=== PATIENT | female | born 1950 | race Caucasian/White ===

== ENCOUNTER 2018-03-18 11:22 | Inpatient (IN) | payer OTHER ==
[~2018-03-18] VITALS: Ht 170.2 cm; Wt 105.2 kg
[2018-03-18 12:25] VITALS: BP 142/88
[2018-03-18 15:04] LABS: ABSOLUTE BASOPHILS 0.1 thou/uL (0.0-0.2); ABSOLUTE EOSINOPHILS 0.2 thou/uL (0.0-0.7); ABSOLUTE LYMPHOCYTES 1.3 thou/uL (0.8-5.3); ABSOLUTE MONOCYTES 0.9 thou/uL (0.0-1.2); ABSOLUTE NEUTROPHILS 3.5 thou/uL (1.6-8.1); HEMATOCRIT 40.2 % (37.0-47.0); HEMOGLOBIN 13.1 gm/dL (12.0-15.0); LYMPHOCYTES 22.3 %; MCH 29.2 pg (26.0-34.0); MCHC 32.6 g/dL (28.0-37.0); MCV 89.4 fL (80.0-100.0); MONOCYTES 14.9 %; MPV 7.4 fl. (7.2-11.1); NUCLEATED RBCS 0 /100WBC; PLATELET COUNT* 374 thou/uL (150-400); POLYS 58.8 %; RBC 4.49 mil/uL (4.20-5.00); RDW-CV 13.5 % (10.5-14.5); WBC 5.9 thou/uL (4.0-11.0)
[2018-03-18 15:13] LABS: ANION GAP 9 mmol/L (7-16); BUN 17 mg/dL (7-18); CALCIUM 9.8 mg/dL (8.5-10.1); CHLORIDE 108 mmol/L (98-107); CO2 25 mmol/L (21-32); CREATININE 0.8 mg/dL (0.6-1.3); GLUCOSE 90 mg/dL (70-99); POTASSIUM 3.7 mmol/L (3.5-5.1); SODIUM 142 mmol/L (136-145)
[2018-03-18 15:28] LABS: ALBUMIN 3.4 g/dL (3.4-5.0); ALKALINE PHOSPHATASE 78 U/L (46-116); SGOT 17 U/L (15-37); SGPT 19 U/L (30-65); TOTAL BILIRUBIN 0.4 mg/dL (<0.1-1.0); TOTAL PROTEIN 6.8 g/dL (6.4-8.2); TROPONIN-I LEVEL <0.06 ng/mL (<0.06)
[2018-03-18 15:38] VITALS: BP 112/84
--- NOTE | 2018-03-18 17:41 | 2DMMODE ---
[place] [address] 2 D/M-MODE ECHOCARDIOGRAM Name: CHARLESJASON M Room: [address] IN .R.#: [id number] Admission: 03/18/18 Attend Phys: Jayjay Steward, Discharge: Date of : 54 Date of Service: 03/18/181739 Report #: [id number] THIS REPORT FOR: //name// APPROVED REPORT Study performed: 03/18/2018 16:13:33 EXAM: Comprehensive 2D, Doppler, and color-flow Echocardiogram Patient Location: Bedside BSA: 2.11 HR: 97 bpm BP: 142/88 mmHg Other Information Study Quality: Fair Indications Atrial Fibrillation 2D Dimensions IVSd: 10.92 (7-11mm) LVOT Diam: 20.99 (18-24mm) LVDd: 49.15 mm PWd: 7.16 (7-11mm) Ascending Ao: 31.58 (22-36mm) LVDs: 34.69 (25-40mm) Aortic Root: 29.64 mm Volumes Left Atrial Volume (Systole) LA ESV Index: 13.80 mL/m2 Aortic Valve AoV Peak Ulises.: 0.71 m/s AO Peak Gr.: 2.00 mmHg LVOT Max P.99 mmHg AO Mean Gr.: 1.17 mmHg LVOT Mean P.19 mmHg LVOT Max V: 0.71 m/s AO V2 VTI: 10.66 cm LVOT Mean V: 0.52 m/s JEAN MARIE (VTI): 4.21 cm2 LVOT V1 VTI: 12.97 cm Mitral Valve E/A Ratio: 3.32 MV Decel. Time: 157.47 ms MV E Max Ulises.: 0.86 m/s MV PHT: 45.67 ms MVA (PHT): 4.82 [place]2 [place] [address] 2 D/M-MODE ECHOCARDIOGRAM Name: JASON SOTO Room: [address] IN ..#: [id number] Admission: 03/18/18 Attend Phys: Jayjay Steward, Discharge: Date of : 54 Date of Service: 03/18/18 1740 Report #: [id number] TDI E/Lateral E': 7.82 E/Medial E': 7.17 Medial E' Ulises.: 0.12 m/s Lateral E' Ulises.: 0.11 m/s Pulmonary Valve PV Peak Ulises.: 0.85 m/s PV Peak Gr.: 2.89 mmHg Tricuspid Valve RAP Estimate: 5.00 mmHg TR Peak Gr.: 16.70 mmHg RVSP: 21.70 mmHg PA Pressure: 21.70 mmHg Left Ventricle The left ventricle is normal size. There is normal LV segmental wall motion. There is normal left ventricular wall thickness. Left ventricular systolic function is normal. The left ventricular ejection fraction is within the normal range. LVEF is 60-65%. Right Ventricle The right ventricle is normal size. The right ventricular systolic function is normal. Atria The left atrium size is normal. The right atrium size is normal. Aortic Valve The Aortic valve is sclerotic. No aortic regurgitation is present. There is no aortic valvular stenosis. Mitral Valve The mitral valve is normal in structure. Trace mitral regurgitation. No evidence of mitral valve stenosis. Tricuspid Valve The tricuspid valve is normal in structure. Trace tricuspid regurgitation. Pulmonic Valve The pulmonary valve is normal in structure. There is no pulmonic valvular regurgitation. Great Vessels The aortic root is normal in size. IVC [place] [address] 2 D/M-MODE ECHOCARDIOGRAM Name: JASON SOTO Room: [address]#: [id number] Admission: 03/18/18 Attend Phys: Jayjay Steward, Discharge: Date of : 54 Date of Service: 03/18/18 1740 Report #: [id number] collapses >50% with inspiration. Pericardium There is no pericardial effusion. <Conclusion> LVEF is 60-65%. The Aortic valve is sclerotic. <ELECTRONICALLY SIGNED> By: Anuj Beltran MD, FACC 03/18/181739 39 39 Anuj Beltran MD, FACC /INF
[2018-03-18 19:39] VITALS: BP 133/71
--- NOTE | 2018-03-18 19:54 | NUR ---
RECEIVED REPORT AND ASSUMED CARE OF PT, ASSESSMENT COMPLETED. TELEMETRY ON SHOWING SINUS ARRHYTHYMIA, ATTEMPTING TO CONVERT. CARDIZEM INFUSING AT 5 CC/HR. PT UP AD ZAHEER WITH STEADY GAIT. NO COMPLAINTS VOICED. WILL CONT TO MONITOR AND ASSIST NEEDED.
[2018-03-19] VITALS: BP 144/72
[2018-03-19 04:00] VITALS: BP 131/72
[2018-03-19 04:29] LABS: ABSOLUTE BASOPHILS 0.1 thou/uL (0.0-0.2); ABSOLUTE LYMPHOCYTES 1.4 thou/uL (0.8-5.3); BASOPHILS 1.1 %; HEMOGLOBIN 12.7 gm/dL (12.0-15.0)
[2018-03-19 04:38] LABS: ABSOLUTE EOSINOPHILS 0.2 thou/uL (0.0-0.7); ABSOLUTE NEUTROPHILS 6.5 thou/uL (1.6-8.1); EOSINOPHILS 2.3 %; HEMATOCRIT 39.4 % (37.0-47.0); LYMPHOCYTES 15.4 %; MCH 28.9 pg (26.0-34.0); MCHC 32.3 g/dL (28.0-37.0); MCV 89.5 fL (80.0-100.0); MONOCYTES 10.5 %; MPV 7.3 fl. (7.2-11.1); NUCLEATED RBCS 0 /100WBC; PLATELET COUNT* 350 thou/uL (150-400); POLYS 70.7 %; RDW-CV 13.2 % (10.5-14.5); WBC 9.1 thou/uL (4.0-11.0)
[2018-03-19 05:02] LABS: CALCIUM 9.6 mg/dL (8.5-10.1); CREATININE 0.8 mg/dL (0.6-1.3); POTASSIUM 4.2 mmol/L (3.5-5.1)
--- NOTE | 2018-03-19 06:16 | NUR ---
SLEPT WELL TONIGHT. CARDIZEM CONT WITH TELEMETRY SHOWING SINUS ARRHYTHMIA. PT DENIES CP OR SOB. GAIT STEADY TO AND FROM BR. HOURLY ROUNDING OBSERVED. HS GOALS OF REST AND SAFETY ACHIEVED.
[2018-03-19 07:40] VITALS: BP 130/61
--- NOTE | 2018-03-19 08:45 | NUR ---
REC'D REPORT FROM NOC RN, ASSUMED CARE OF PT APPROX 0730. A&O X4, ABLE TO COMMUNICATE NEEDS TO STAFF. 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 O2 SATS >92% RA. CARDIZEM GTTS INFUSING ORDERED. ASSESSMENT COMPLETE. VSS. CARDIOLOGY CONSULT THIS AM. CALL LIGHT WITHIN REACH.
--- NOTE | 2018-03-19 09:08 | CON ---
[address] [address] CONSULTATION Name: JASON SOTO Room: [address] IN ..#: [id number] Admission: 03/18/18 Attend Phys: Jayjay Steward MD Discharge: Date of : 54 Report #: [id number] THIS REPORT FOR: //name// CC: Jayjay Carter NO PCP Taurus Jean MD DATE OF SERVICE: 03/18/2018 Cardiology Consultation HISTORY OF PRESENT ILLNESS: The patient is a 67-year-old single white female who I was asked to see in the hospital after she is noted to have atrial fibrillation. The patient states she has had no history of heart disease. She apparently had a stress test a couple of years ago ordered by Dr. Jeff that was unremarkable. She has never seen a registered pharmacist. She is not very active at this time. She apparently had a [employer]qu[employer] shunt performed 40 years ago. She has had a lot of GI problems since that time with GI bleeding, pain, difficulty swallowing. Recently, she has had difficulty swallowing. She is scheduled for an EGD today. When she arrived for her EGD, she was in sinus rhythm. During the procedure, she went into atrial fibrillation. After the procedure, she is placed on IV Cardizem and admitted. I was asked to see her for further evaluation and treatment. She denies any exertional chest pain. She does get short of breath with exertion. There is note of some edema. She denied any significant palpitation, lightheadedness or syncope. PAST MEDICAL HISTORY: Otherwise significant for cholecystectomy, hernia repair, hysterectomy. She has a history of iron deficiency anemia and received IV iron infusions from Dr. Jean she has a history of hypertension. MEDICATIONS: Include Protonix, amlodipine. ALLERGIES: She has an allergy to CODEINE. FAMILY HISTORY: Positive for heart disease. SOCIAL HISTORY: She is , lives in [place]. 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 No smoking or alcohol abuse. REVIEW OF SYSTEMS: She has had no history of stroke or asthma. She has had hepatitis C, treated in the past. No kidney disease. She wears glasses. No psychiatric illness. PHYSICAL EXAMINATION: GENERAL: Revealed a middle-aged female, [place] [address] CONSULTATION Name: JASON SOTO Room: [address]#: [id number] Admission: 03/18/18 Attend Phys: Jayjay Steward MD Discharge: Date of : 54 Report #: [id number] VITAL SIGNS: Show blood pressure 140/80, pulse is 100 and irregular. She is afebrile. HEENT: She is anicteric. Conjunctivae pink. Mucous membranes moist. NECK: Veins nondistended. No carotid bruits. Neck is supple. CHEST: Clear to auscultation. CARDIOVASCULAR: Irregular rhythm. ABDOMEN: Obese, soft, nontender. EXTREMITIES: Had no edema. Posterior tibial pulse 2+ bilaterally. SKIN: Warm, dry. NEUROLOGIC: Nonfocal. LABORATORY DATA: Her ECG showed an atrial fibrillation on the monitor, although there is no 12-lead available. She has no recent x-rays, as she is sent straight from the GI lab. She has had blood work today. Potassium is 3.7, creatinine 0.8. Liver function studies were normal. Troponin of 109. TSH 3.0. White blood cell count 5.9, hemoglobin 13.1. IMPRESSION AND RECOMMENDATIONS: 1. Atrial fibrillation. Rate controlled with calcium mary jane. I would recommend anticoagulation since the patient is 67 and a female with hypertension. However, I would discuss with GI and her business case analyst prior to initiating anticoagulation. 2. Hypertension. The patient is on calcium mary jane. 3. Difficulty swallowing. The patient followed by GI. 4. Previous Taqueria shunt. 5. History of hepatitis C. 6. Hypertension. <ELECTRONICALLY SIGNED> By: Scott Pagan MD, FACC 03/19/18 0908 [id number] [id number] Beltran MD, FACC /nt
[2018-03-19 12:00] VITALS: BP 121/50
[2018-03-19 12:12] VITALS: BP 131/72
[2018-03-19] MEDS ORDERED: XARELTO10 M1 PO ×2 (12:25→12:37)
--- NOTE | 2018-03-19 12:30 | NUR ---
PT WITH COMPLETE DC ORDER. REVIEWED DC INSTRUCTIONS AND MEDICATION LIST WITH PT. ANSWERED QUESTIONS TO SATISFACTION OF PT. IV AND TOOL GRINDER OPERATOR HAVE BEED REMOVED. PT IN POSSESSION OF ALL PERSONAL BELONGINGS. PT'S DTR TO TRANSPORT PT TO HOME VIA PERSONAL VEHICLE. PT TRANSPORTED VIA WC OFF UNIT WITH NURSING STAFF AND DTR TO FRONT ENTRANCE.
[2018-03-19] MEDS ORDERED: DILTIAZEM ER120 MG PO (12:36)
--- NOTE | 2018-03-20 10:19 | EKG ---
[place] [address] ELECTROCARDIOGRAM REPORT Name: JASON SOTO Room: [address] IN M..#: [id number] Admission: 03/18/18 Attend Phys: Jayjay Steward MD Discharge: 03/19/18 Date of : 54 Report #: [id number] THIS REPORT FOR: //name// [facility] Test Date: 2018-03-19 Test Time: 08:41:22 Pat Name: JASON SOTO Department: Room: [address] Gender: F Principal Programmer: : [id number] Requested By: Anuj Beltran Order Number: [id number] Reading MD: Scott Pagan Measurements Intervals [place] Rate: 69 P: 57 FL: 156 QRS: -35 QRSD: 101 T: -6 QT: 440 QTc: 472 Interpretive Statements Sinus arrhythmia Probable left atrial enlargement Left axis deviation Possible anteroseptal infarct, old No previous ECG available for comparison Electronically Signed On 03-20-2018 10:19:35 BALLISTICIAN by Scott Pagan [email or web address] <ELECTRONICALLY SIGNED> By: Scott Pagan MD, [facility] 03/20/18 1019 [id number] Scott Pagan MD, [facility] /EPI
== END 2018-03-19 13:45 | disposition home or self-care (01) | DRG 309 ==
LOC: M.2W 11:22
PROVIDERS: ADMIT Internal Medicine
DX: I48.91 Unspecified atrial fibrillation (principal); D68.69 Other thrombophilia; I10 Essential (primary) hypertension; R13.10 Dysphagia, unspecified; K21.9 Gastro-esophageal reflux disease without esophagitis; F41.9 Anxiety disorder, unspecified; Z90.49 Acquired absence of other specified parts of digestive tract; Z90.710 Acquired absence of both cervix and uterus; Z88.6 Allergy status to analgesic agent; Z82.49 Family history of ischemic heart disease and other diseases of the circulatory system; Z86.19 Personal history of other infectious and parasitic diseases; Z79.899 Other long term (current) drug therapy

== ENCOUNTER → 2018-04-08 | Outpatient (CLI) | payer OTHER ==
[~2018-04-08] MED LIST: DILTIAZEM ER120 MG PO; XARELTO10 M1 PO
== END ==
LOC: M.NUC
DX: R14.0 Abdominal distension (gaseous) (principal); R11.0 Nausea; R68.81 Early satiety

== ENCOUNTER 2018-10-19 22:08 | Emergency (ER) | payer OTHER ==
[~2018-10-19] VITALS: Ht 172.7 cm; Wt 102.1 kg
[2018-10-19] MEDS ORDERED: CARTIA XT120 M1 PO (22:32)
[2018-10-20 00:53] VITALS: BP 161/88
== END 2018-10-20 00:53 | disposition home or self-care (01) ==
LOC: M.ERS 22:08
DX: S61.511A Laceration without foreign body of right wrist, initial encounter (principal); K21.9 Gastro-esophageal reflux disease without esophagitis; I10 Essential (primary) hypertension; Z88.5 Allergy status to narcotic agent; W26.0XXA Contact with knife, initial encounter; Y92.89 Other specified places as the place of occurrence of the external cause; Y93.89 Activity, other specified; Y99.8 Other external cause status

== ENCOUNTER 2018-12-29 06:45 | Emergency (ER) | payer OTHER ==
[~2018-12-29] VITALS: Ht 172.7 cm; Wt 109.0 kg
[~2018-12-29 06:45] MED LIST changes: +CARTIA XT120 M1 PO
[2018-12-29] MEDS ORDERED: ASPIRIN325 PO (06:53)
[2018-12-29] MEDS ORDERED: HYDROCODON-ACE1 EAC7 PO (08:31)
[2018-12-29 08:35] VITALS: BP 126/69
== END 2018-12-29 08:36 | disposition home or self-care (01) ==
LOC: M.ERS 06:45
DX: M54.32 Sciatica, left side (principal); I10 Essential (primary) hypertension; I48.91 Unspecified atrial fibrillation; K21.9 Gastro-esophageal reflux disease without esophagitis; Z86.2 Personal history of diseases of the blood and blood-forming organs and certain disorders involving the immune mechanism; Z88.5 Allergy status to narcotic agent

== ENCOUNTER → 2019-03-30 | Outpatient (CLI) | payer OTHER ==
[~2019-03-30] MED LIST changes: +ASPIRIN325 PO; +HYDROCODON-ACE1 EAC7 PO
== END ==
LOC: M.RAD 10:06
DX: Z12.31 Encounter for screening mammogram for malignant neoplasm of breast (principal); M85.89 Other specified disorders of bone density and structure, multiple sites; Z78.0 Asymptomatic menopausal state

== ENCOUNTER 2019-09-13 11:31 | Emergency (ER) | payer MEDICARE ==
[~2019-09-13] VITALS: Ht 170.2 cm; Wt 107.5 kg
[2019-09-13] MEDS ORDERED: ELIQUIS5 MG PO (11:42)
[2019-09-13] MEDS ORDERED: HYDROCHLOROTHIA25 M1 PO (11:43)
[2019-09-13] MEDS ORDERED: NORCO 5-325 TA1 EAC1 PO (13:09)
[2019-09-13 13:48] VITALS: BP 134/72
== END 2019-09-13 13:49 | disposition home or self-care (01) ==
LOC: M.ERS 11:31
DX: S52.502A Unspecified fracture of the lower end of left radius, initial encounter for closed fracture (principal); I10 Essential (primary) hypertension; I48.91 Unspecified atrial fibrillation; K21.9 Gastro-esophageal reflux disease without esophagitis; Z86.2 Personal history of diseases of the blood and blood-forming organs and certain disorders involving the immune mechanism; Z88.6 Allergy status to analgesic agent; W01.0XXA Fall on same level from slipping, tripping and stumbling without subsequent striking against object, initial encounter; Y93.89 Activity, other specified; Y92.098 Other place in other non-institutional residence as the place of occurrence of the external cause; Y99.8 Other external cause status

== ENCOUNTER → 2019-09-20 | Outpatient (CLI) | payer MEDICARE ==
[~2019-09-20] MED LIST changes: +ELIQUIS5 MG PO; +HYDROCHLOROTHIA25 M1 PO; +NORCO 5-325 TA1 EAC1 PO
== END ==
LOC: M.LAB 09:40
PROVIDERS: ATTEND Physician Assistant
DX: Z01.812 Encounter for preprocedural laboratory examination (principal); S52.501A Unspecified fracture of the lower end of right radius, initial encounter for closed fracture; X58.XXXA Exposure to other specified factors, initial encounter; Y93.89 Activity, other specified; Y92.89 Other specified places as the place of occurrence of the external cause; Y99.8 Other external cause status

== ENCOUNTER → 2019-09-22 | Outpatient (CLI) | payer MEDICARE | LOC: M.LAB 05:36 | DX: E87.6 Hypokalemia (principal) ==

== ENCOUNTER 2020-01-04 05:26 | Emergency (ER) | payer MEDICARE ==
[~2020-01-04] VITALS: Ht 172.7 cm; Wt 106.6 kg
[2020-01-04] MEDS ORDERED: SERTRALINE HCL100 MG PO (05:37)
[2020-01-04] MEDS ORDERED: PANTOPRAZOLE SO40 M1 PO (05:37)
[2020-01-04] MEDS ORDERED: HYDROCODON-ACE1 EAC7 PO (06:32)
[2020-01-04] MEDS ORDERED: OTHER MISCELL (06:32)
[2020-01-04 06:49] VITALS: BP 145/88
== END 2020-01-04 06:50 | disposition home or self-care (01) ==
LOC: M.ERS 05:26
DX: S92.191A Other fracture of right talus, initial encounter for closed fracture (principal); K21.9 Gastro-esophageal reflux disease without esophagitis; I10 Essential (primary) hypertension; I48.91 Unspecified atrial fibrillation; Z88.5 Allergy status to narcotic agent; Z79.899 Other long term (current) drug therapy; W01.0XXA Fall on same level from slipping, tripping and stumbling without subsequent striking against object, initial encounter; Y93.89 Activity, other specified; Y92.89 Other specified places as the place of occurrence of the external cause; Y99.9 Unspecified external cause status

== ENCOUNTER → 2021-03-12 | Outpatient (CLI) | payer OTHER ==
[~2021-03-12] MED LIST changes: +OTHER MISCELL; +PANTOPRAZOLE SO40 M1 PO; +SERTRALINE HCL100 MG PO
--- NOTE | 2021-03-12 17:10 | 2DMMODE ---
[place] [address] 2 D/M-MODE ECHOCARDIOGRAM Name: JASON SOTO Room: [facility]#: [id number] Admission: 03/12/21 Attend Phys: Piper Santos Discharge: Date of : 54 Date of Service: 03/12/21 1710 Report #: [id number] THIS REPORT FOR: cc: Piper Weston MD, Stephanie M. MD Liston, Michael J. MD [facility] ~ APPROVED REPORT Study performed: 03/12/2021 13:32:48 EXAM: Comprehensive 2D, Doppler, and color-flow Echocardiogram Patient Location: Out-Patient BSA: 2.17 HR: 105 bpm BP: 120/80 mmHg Other Information Study Quality: Good Indications Atrial Fibrillation 2D Dimensions IVSd: 11.63 (7-11mm) LVOT Diam: 20.93 (18-24mm) LVDd: 45.37 mm PWd: 10.64 (7-11mm) Ascending Ao: 33.40 (22-36mm) LVDs: 26.70 (25-40mm) Aortic Root: 31.03 mm Volumes Left Atrial Volume (Systole) LA ESV Index: 16.50 mL/m2 Aortic Valve AoV Peak Ulises.: 1.43 m/s AO Peak Gr.: 8.18 mmHg LVOT Max P.72 mmHg AO Mean Gr.: 4.38 mmHg LVOT Mean P.89 mmHg LVOT Max V: 0.96 m/s AO V2 VTI: 25.48 cm LVOT Mean V: 0.64 m/s JEAN MARIE (VTI): 3.91 cm2 LVOT V1 VTI: 28.95 cm Mitral Valve E/A Ratio: 0.61 [place] [address] 2 D/M-MODE ECHOCARDIOGRAM Name: JASON SOTO Room: [facility]#: [id number] Admission: 03/12/21 Attend Phys: Piper Santos Discharge: Date of : 54 Date of Service: 03/12/21 1710 Report #: [id number] MV Decel. Time: 250.70 ms MV E Max Ulises.: 0.59 m/s MV PHT: 72.70 ms MVA (PHT): 3.03 cm2 TDI E/Lateral E': 5.90 E/Medial E': 6.56 Medial E' Ulises.: 0.09 m/s Lateral E' Ulises.: 0.10 m/s Pulmonary Valve PV Peak Ulises.: 0.98 m/s PV Peak Gr.: 3.82 mmHg Left Ventricle The left ventricle is normal size. There is normal LV segmental wall motion. Mild concentric left ventricular hypertrophy. Left ventricular systolic function is normal. LVEF is 55-60%. Transmitral Doppler flow pattern suggests impaired LV relaxation. Right Ventricle The right ventricle is normal size. The right ventricular systolic function is normal. Atria The left atrium size is normal. The right atrium size is normal. Aortic Valve The aortic valve is normal in structure. Trace aortic regurgitation. There is no aortic valvular stenosis. Mitral Valve The mitral valve is normal in structure. Mild mitral regurgitation. No evidence of mitral valve stenosis. Tricuspid Valve The tricuspid valve is normal in structure. There is no tricuspid valve regurgitation noted. Pulmonic Valve The pulmonary valve is normal in structure. There is no pulmonic valvular regurgitation. Great Vessels The aortic root is normal in size. IVC is normal in size and collapses >50% [place] [address] 2 D/M-MODE ECHOCARDIOGRAM Name: JASON SOTO Room: [facility]#: [id number] Admission: 03/12/21 Attend Phys: Piper Santos Discharge: Date of : 54 Date of Service: 03/12/21 1710 Report #: [id number] Pericardium There is no pericardial effusion. <Conclusion> The left ventricle is normal size. Mild concentric left ventricular hypertrophy. Left ventricular systolic function is normal. LVEF is 55-60%. Transmitral Doppler flow pattern suggests impaired LV relaxation. Trace aortic regurgitation. Mild mitral regurgitation. IVC is normal in size and collapses >50% with inspiration. <ELECTRONICALLY SIGNED> By: Scott Pagan MD, FACC 03/12/211709 09 09 Scott Pagan MD, FACC /INF
== END ==
LOC: M.RAD 12:39
PROVIDERS: ATTEND Family Medicine
DX: Z12.31 Encounter for screening mammogram for malignant neoplasm of breast (principal); I34.0 Nonrheumatic mitral (valve) insufficiency; M85.88 Other specified disorders of bone density and structure, other site; I48.0 Paroxysmal atrial fibrillation; I11.0 Hypertensive heart disease with heart failure; I50.32 Chronic diastolic (congestive) heart failure; M81.0 Age-related osteoporosis without current pathological fracture

== ENCOUNTER → 2021-04-11 | Outpatient (CLI) | payer OTHER | LOC: M.ULTRA 03-28 10:30 | PROVIDERS: ATTEND Internal Medicine Hematology & Oncology | DX: K76.89 Other specified diseases of liver (principal); K76.0 Fatty (change of) liver, not elsewhere classified; D64.9 Anemia, unspecified; Z90.49 Acquired absence of other specified parts of digestive tract ==